=== PATIENT | female | born 1950 | race Caucasian/White ===

== ENCOUNTER → 2023-08-12 12:33 | Outpatient (REF) | payer OTHER, SELFPAY | LOC: RCS 12:33 | PROVIDERS: ATTENDING PHYSICIAN Internal Medicine Cardiovascular Disease; FAMILY PHYSICIAN Family Medicine | DX: I35.0 Nonrheumatic aortic (valve) stenosis (principal) | CPT/HCPCS: 93306 ==

== ENCOUNTER → 2023-09-03 14:23 | Outpatient (REF) | payer OTHER, SELFPAY | LOC: WDC 14:23 | PROVIDERS: ATTENDING PHYSICIAN Nurse Practitioner Family; FAMILY PHYSICIAN Family Medicine | DX: Z12.31 Encounter for screening mammogram for malignant neoplasm of breast (principal) | CPT/HCPCS: 77063; 77067 ==

== ENCOUNTER → 2023-12-24 08:35 | Outpatient (REF) | payer OTHER, SELFPAY | LOC: RAD 08:35 | PROVIDERS: ATTENDING PHYSICIAN Surgery Vascular Surgery; FAMILY PHYSICIAN Family Medicine | DX: I65.23 Occlusion and stenosis of bilateral carotid arteries (principal) | CPT/HCPCS: 93880 ==

== ENCOUNTER → 2024-02-11 08:58 | Outpatient (REF) | payer OTHER, SELFPAY | LOC: HWRCS 08:58 | PROVIDERS: ATTENDING PHYSICIAN Internal Medicine Cardiovascular Disease; FAMILY PHYSICIAN Family Medicine | DX: I35.0 Nonrheumatic aortic (valve) stenosis (principal) | CPT/HCPCS: 93306 ==

== ENCOUNTER 2024-04-01 06:15 | Day surgery (SDC) | payer MEDICARE, OTHER, SELFPAY ==
[2024-04-01 07:16] LABS: Glucose - Point of Care 185 mg/dl (70-99)
== END 2024-04-01 09:44 | disposition home or self-care (01) ==
LOC: GI 06:15
PROVIDERS: ATTENDING PHYSICIAN Surgery
DX: Z12.11 Encounter for screening for malignant neoplasm of colon (principal); K62.5 Hemorrhage of anus and rectum; K56.690 Other partial intestinal obstruction; D12.0 Benign neoplasm of cecum; D12.1 Benign neoplasm of appendix; C19 Malignant neoplasm of rectosigmoid junction
CPT/HCPCS: 45380; 45381; 88305; 82962; 88342

== ENCOUNTER → 2024-04-08 12:01 | Outpatient (REF) | payer MEDICARE, OTHER, SELFPAY ==
[2024-04-08 13:29] LABS: % Basophils 0.3 % (0-2); % Eosinophils 5.1 % (0-6); % Immature Granulocytes 0.5 % (0-0.5); % Lymphocytes 21.1 % (20.5-51.1); Absolute Eosinophils 0.4 10^3/uL (0-0.7); Absolute Lymphocytes 1.8 10^3/uL (1.2-3.4); Absolute Monocytes 0.5 10^3/uL (0.1-0.6); Absolute Neutrophils 5.8 10^3/uL (1.4-6.5); Hematocrit 36.8 % (37.0-47.0); Hemoglobin 12.1 g/dL (12.0-16.0); Mean Corp Hgb Conc. 32.9 g/dL (33.0-37.0); Mean Corpuscular Hgb 28.3 pg (27.0-31.0); Mean Platelet Volume 10.2 fL (7.4-10.4); Nucleated Red Blood Cells % 0 %; Platelet Count 290 10^3/uL (130-400); Red Blood Cell Count 4.28 10^6/uL (4.20-5.40); Red Cell Dist. Width 12.7 % (11.5-14.5); White Blood Cell Count 8.7 10^3/uL (4.8-10.8)
[2024-04-08 15:41] LABS: ALT (SGPT) 14 U/L (0-35); AST (SGOT) 19 U/L (14-36); Albumin 4.4 g/dl (3.5-5.0); Alkaline Phosphatase 54 U/L (38-126); Blood Urea Nitrogen 14 mg/dl (7-17); Calcium 9.1 mg/dl (8.4-10.2); Carbon Dioxide 27 mmol/L (22-30); Chloride 98 mmol/L (98-107); Glucose 165 mg/dl (70-99); Potassium 4.3 mmol/L (3.5-5.1); Sodium 137 mmol/L (135-145); Total Bilirubin 0.2 mg/dl (0.2-1.3); Total Protein 7.1 g/dl (6.3-8.2); eGFR > 60.00
== END ==
LOC: REG 12:01
PROVIDERS: ATTENDING PHYSICIAN Surgery; FAMILY PHYSICIAN Family Medicine
DX: C19 Malignant neoplasm of rectosigmoid junction (principal)
CPT/HCPCS: 36415; 80053; 82378; 85025

== ENCOUNTER → 2024-04-09 08:56 | Outpatient (REF) | payer MEDICARE, OTHER, SELFPAY | LOC: MRI 3T 08:56 | PROVIDERS: ATTENDING PHYSICIAN Surgery; FAMILY PHYSICIAN Family Medicine | DX: C19 Malignant neoplasm of rectosigmoid junction (principal) | CPT/HCPCS: 72197; A9575 ==

== ENCOUNTER → 2024-04-10 08:59 | Outpatient (REF) | payer MEDICARE, OTHER, SELFPAY | LOC: RAD 08:59 | PROVIDERS: ATTENDING PHYSICIAN Surgery | DX: C19 Malignant neoplasm of rectosigmoid junction (principal) | CPT/HCPCS: 71260; 74177; Q9967 ==

== ENCOUNTER 2024-05-01 06:09 | Inpatient (IN) | payer MEDICARE, OTHER, SELFPAY ==
[2024-04-23 10:55] LABS: Hematocrit 36.7 % (37.0-47.0); Hemoglobin 11.9 g/dL (12.0-16.0); Mean Corp Hgb Conc. 32.4 g/dL (33.0-37.0); Mean Corpuscular Hgb 28.2 pg (27.0-31.0); Platelet Count 249 10^3/uL (130-400); Red Blood Cell Count 4.22 10^6/uL (4.20-5.40); Red Cell Dist. Width 13.1 % (11.5-14.5); White Blood Cell Count 6.6 10^3/uL (4.8-10.8)
[2024-04-23 11:12] LABS: INR 0.96; PT 13.3 Sec (11.4-14.6)
[2024-04-23 11:13] LABS: APTT 29.2 Sec (23.4-35.0)
[2024-04-23 11:31] LABS: ALT (SGPT) 13 U/L (0-35); AST (SGOT) 20 U/L (14-36); Alkaline Phosphatase 52 U/L (38-126); Blood Urea Nitrogen 8 mg/dl (7-17); Calcium 9.4 mg/dl (8.4-10.2); Carbon Dioxide 27 mmol/L (22-30); Chloride 102 mmol/L (98-107); Glucose 105 mg/dl (70-99); Potassium 4.6 mmol/L (3.5-5.1); Sodium 138 mmol/L (135-145); Total Bilirubin 0.6 mg/dl (0.2-1.3); eGFR > 60.00
[2024-04-23 12:40] LABS: Glycohemoglobin (HgbA1c) 7.1 % (4.0-5.6)
[2024-04-23 14:04] VITALS: BMI 21.0
--- NOTE | 2024-04-24 17:38 | PTCARENOTE ---
HgbA1C 7.1, Tyler Chavez notified, no further orders at this time.
[2024-05-01] VITALS (30 sets, daily range): BP systolic 10–160; BP diastolic 49–134; BMI 21.0; BMI 22.5
[2024-05-01 06:53] LABS: Glucose - Point of Care 199 mg/dl (70-99)
[2024-05-01] MEDS: ENTEREG 12 MG PO (06:57)
[2024-05-01] MEDS: TYLENOL 1000 MG PO (06:57)
[2024-05-01] MEDS: NEURONTIN 600 MG PO (06:57)
[2024-05-01] MEDS: HEPARIN 5000 UNITS SC (06:57)
[2024-05-01] MEDS: NORMOSOL-R/PLASMALYTE-A 1000 IV ×3 (07:11→23:58)
--- NOTE | 2024-05-01 11:06 | W.OR.REC1 ---
Addendum entered and electronically signed by Tyron Covington MD 05/01/24 11:25:
Patient's , Cristhian, updated via phone conversation.
Original Note:
Rectal Surgery Post Op Note
Immediate Post Op
Primary Surgeon: Tito Covington MD
Assisting Surgeon: Audrey Cordoba MD; GHISLAINE Dahl
Urologist: Sonali Malone MD
Pre-op Diagnosis: rectal cancer
Post-op Diagnosis:same
Procedure Performed: 1) robotic low anterior resection 2) flexible sigmoidoscopy
Anesthesia Type: general plus local
Specimen / Cultures: 1) rectosigmoid with tattoo distally 2) distal anastomotic donut
Estimated Blood Loss: 25 cc
Complications: no immediate
Operative Findings: 1) upper rectal/rectosigmoid junction tumor with nearby tattooing 2) no obvious metastatic disease
Cancer Report
ASA Score: III
Case Status: Elective
Operation: Low anterior resection
Modailty: Robotic
Location of tumor within rectum: High
Height of lower edge of tumor from anal verge: 15-16 cm
Mobilization of splenic flexure: No
Level of ligation of inferior mesenteric artery: Superior rectal artery
Level of ligation of inferior mesenteric vein: Low
Level of rectal transectiondistal to distal edge of tumor: 4 cm
Type of Reconstruction: Stapled end-end
Anastomotic testing method(s): Rectal air infusion under pelvic fluid (with help of flexible sigmoidoscope)
Creation of stoma: No
En bloc resection: No
Metastectomy: No
Completeness of tumor resection: R0
Interoperative Complications: No
Blood transfusion: No
Total Mesorectal Excision photographed: in pathology
[2024-05-01 11:35] LABS: Glucose - Point of Care 275 mg/dl (70-99)
[2024-05-01 11:46] LABS: % Basophils 0.2 % (0-2); % Eosinophils 0.5 % (0-6); % Immature Granulocytes 0.3 % (0-0.5); % Lymphocytes 9.7 % (20.5-51.1); % Monocytes 1.6 % (1.7-9.3); % Neutrophils 87.7 % (42.2-75.2); Absolute Eosinophils 0.1 10^3/uL (0-0.7); Absolute Lymphocytes 1.2 10^3/uL (1.2-3.4); Absolute Monocytes 0.2 10^3/uL (0.1-0.6); Absolute Neutrophils 11.2 10^3/uL (1.4-6.5); Hemoglobin 11.4 g/dL (12.0-16.0); Mean Corp Hgb Conc. 33.5 g/dL (33.0-37.0); Mean Corpuscular Volume 83.5 fL (81.0-99.0); Mean Platelet Volume 10.1 fL (7.4-10.4); Nucleated Red Blood Cells % 0 %; Platelet Count 284 10^3/uL (130-400); Red Blood Cell Count 4.07 10^6/uL (4.20-5.40); White Blood Cell Count 12.8 10^3/uL (4.8-10.8)
[2024-05-01] MEDS: NOVOLOG vial 4 UNITS SC (12:04)
--- NOTE | 2024-05-01 12:06 | CON.HOSP ---
Consultation
-
Date/Time Consultation Requested: 05/01/24; 11:21 AM
Date/Time Consultation Performed: 05/01/24; 12:07 PM
Requesting Provider: Dr. Covington
Performing Provider: Dr. Wood
Family Physician
-
Family Physician: Bradley Flores
Chief Complaint
-
rectal cancer status post robotic low anterior colonic resection
History of Present Illness
Ms. Theresa Allison is a 73 yo woman with hx DM 2, essential HTN, HLD, hypothyroidism, severe , rectal cancer now status post robotic low anterior resection today; medicine asked to consult for medical care post-op.
Medical History
Past Medical History
Past Medical History: Reports Other (DM 2, essential HTN, HLD, hypothyroidism, severe , rectal cancer)
Past Surgical History: Reports Other ( status post robotic low anterior resection)
Family History
Family History: Reviewed & Not Pertinent
Allergies / Home Medications
Allergies reflects when Allergies were last updated in [employer].
Home Medications with original date entered in [employer]
Allergy/Medication List:
Allergies
Allergy/AdvReac Type Severity Reaction Status Date / Time
aspirin Allergy hives, Verified 05/01/24 06:24
itching
Home Medications
repaglinide 1 mg tablet 1 mg PO MEALS Diabetes 08/04/19
rosuvastatin 10 mg tablet 10 mg PO MOTUWETHFR@1800 High cholesterol 02/28/21
folic acid 1 mg tablet 1 mg PO DAILY 08/23/22
levothyroxine 75 mcg tablet 88 mcg PO DAILY 08/23/22
sitagliptin phos 50 mg-metformin ER 1,000 mg tablet,extend rel 24h mp (Janumet XR) 1 tab PO BID 08/23/22
bisacodyl 5 mg tablet,delayed release (Dulcolax (bisacodyl)) 10 mg PO ONCE 04/23/24
cholecalciferol (vitamin D3) 50 mcg (2,000 unit) tablet (Vitamin D3) 50 mcg PO DAILY 04/23/24
cyanocobalamin (vitamin B-12) 1,000 mcg tablet (Vitamin B-12) 1,000 mcg PO DAILY 04/23/24
losartan 50 mg tablet 50 mg PO DAILY 04/23/24
metronidazole 500 mg tablet 500 mg PO ONCE 04/23/24
neomycin 500 mg tablet 500 mg PO ONCE 04/23/24
peg 3350-electrolytes 236 gram-22.74 gram-6.74 gram-5.86 gram solution (Golytely) 240 ml PO Q10M preop 04/23/24
Review of Systems
-
History Source: Patient
A 12 point Review of Systems was completed except as noted: Yes
Physical Exam
Vital Signs
Vital Signs
Temp Pulse Resp BP Pulse Ox
97.2 F 83 20 140/63 100
05/01/24 11:32 05/01/24 11:45 05/01/24 11:45 05/01/24 11:45 05/01/24 11:45
Laboratory Results
-
Laboratory Results
05/01/24 11:37
PT 13.3 Sec (11.4-14.6) 04/23/24 08:33
INR 0.96 04/23/24 08:33
APTT 29.2 Sec (23.4-35.0) 04/23/24 08:33
Total Bilirubin 0.6 mg/dl (0.2-1.3) 04/23/24 08:33
AST 20 U/L (14-36) 04/23/24 08:33
ALT 13 U/L (0-35) 04/23/24 08:33
Alkaline Phosphatase 52 U/L (38-126) 04/23/24 08:33
Data Reviewed
-
Diagnostic Radiology: Report Reviewed by Me
Lab Data: Labs Reviewed
Impression / Plan
-
Ms. Theresa Calumet is a 73 yo woman with hx DM 2, essential HTN, HLD, hypothyroidism, severe , rectal cancer now status post robotic low anterior resection today; medicine asked to consult for medical care post-op.
LABS: WBC 12.8, Hg 11.4, PLT 284
Na 135, K+ 4.2, CO2 19, BUN 6, Cr 0.5, Glucose 266
Rectal Cancer s/p Robotic low anterior Resection 05/01
-s/p surgery by Dr. Covington today
-monitor in ICU overnight given critical
-CLD ordered
-continue Entereg
-pain control
-IVF
Severe
TTE 02/11/24 - EF 65-70%, peak and mean gradients aortic valve 86 and 54mmHg respectively. peak velocity 4.4m/s
-monitor in ICU overnight
-Cardiology aware of admission, consulted
Essential HTN
-DUST COLLECTOR Losartan
Hypothyroidism
-DUST COLLECTOR Synthroid
DM
-patient is on Janumet XR and Repaglinide at home
-ISS low
DVT PPx
FULL CODE
[2024-05-01 12:08] LABS: Blood Urea Nitrogen 6 mg/dl (7-17); Calcium 7.8 mg/dl (8.4-10.2); Carbon Dioxide 19 mmol/L (22-30); Chloride 102 mmol/L (98-107); Estimated Creatinine Clearance 85 ml/min; Glucose 266 mg/dl (70-99); Magnesium 1.8 mg/dl (1.6-2.3); Potassium 4.2 mmol/L (3.5-5.1); Sodium 135 mmol/L (135-145); eGFR > 60.00
[2024-05-01] MEDS: TRANDATE 5 MG IV (12:20)
[2024-05-01] MEDS: TORADOL 10 MG IV ×2 (13:18→20:05)
[2024-05-01] MEDS: TYLENOL 650 MG PO ×3 (13:19→20:08)
[2024-05-01] MEDS: REFRESH EYE DROPS (PF) 1 DROPS OPHTH (13:33)
--- NOTE | 2024-05-01 13:50 | CON.INTV ---
Consultation
Consultation Request
Date/Time Consultation Requested: 05/01/24
Date/Time Consultation Performed: 05/01/24
Performing Provider: Amalia
Reason for Consultation: ICU
Medical History
-
History of Present Illness:
Patient is a 73 year old F with history of rectal cancer (stage I), severe , DM 2, prior L CEA presenting for elective resection of cancer. Underwent LAR and flex sig by CRC on 05/01/24 and tolerated procedure well. He was extubated in PACU and
admitted to ICU for observation due to her history of severe . Currently not on pressors, stable on RA. Has eye pain from surgical tape but otherwise doing well.
Past Medical History
Past Medical History: Other (see list below)
Social History
Tobacco: Non-smoker
Alcohol: None
Drug: None
Family History
Family History: Reviewed & Not Pertinent
Allergies / Home Medications
Allergies
Allergy/AdvReac Type Severity Reaction Status Date / Time
aspirin Allergy hives, Verified 05/01/24 06:24
itching
Home Medications
�Medication �Instructions �Recorded �Confirmed �Last Taken �Type
repaglinide 1 mg tablet 1 mg PO MEALS Diabetes 08/04/19 05/01/24 04/29/24 History
rosuvastatin 10 mg tablet 10 mg PO MOTUWETHFR@1800 High 02/28/21 04/23/24 03/07/21 17:00 History
cholesterol
folic acid 1 mg tablet 1 mg PO DAILY 08/23/22 04/23/24 04/24/24 History
levothyroxine 75 mcg tablet 88 mcg PO DAILY 08/23/22 05/01/24 04/30/24 07:00 History
sitagliptin phos 50 mg-metformin 1 tab PO BID 08/23/22 05/01/24 04/29/24 17:00 History
ER 1,000 mg tablet,extend rel 24h
mp (Janumet XR)
bisacodyl 5 mg tablet,delayed 10 mg PO ONCE 04/23/24 05/01/24 04/30/24 13:00 History
release (Dulcolax (bisacodyl))
cholecalciferol (vitamin D3) 50 50 mcg PO DAILY 04/23/24 04/23/24 04/24/24 History
mcg (2,000 unit) tablet (Vitamin
D3)
cyanocobalamin (vitamin B-12) 1,000 mcg PO DAILY 04/23/24 04/23/24 04/24/24 History
1,000 mcg tablet (Vitamin B-12)
losartan 50 mg tablet 50 mg PO DAILY 04/23/24 05/01/24 04/30/24 07:00 History
metronidazole 500 mg tablet 500 mg PO ONCE 04/23/24 05/01/24 04/30/24 22:00 History
neomycin 500 mg tablet 500 mg PO ONCE 04/23/24 05/01/24 04/30/24 22:00 History
peg 3350-electrolytes 236 240 ml PO Q10M preop 04/23/24 05/01/24 05/01/24 04:00 History
gram-22.74 gram-6.74 gram-5.86
gram solution (Golytely)
Review of Systems
-
History Source: Patient
All other systems: Negative unless noted
Vitals / Labs / Diagnostic Testing
Vital Signs
Temp Pulse Resp BP Pulse Ox
97.8 F 78 12 144/62 99
05/01/24 13:49 05/01/24 13:00 05/01/24 13:00 05/01/24 12:45 05/01/24 13:49
Lab Data
05/01/24 11:37
05/01/24 11:37
Diagnostic Testing:
Physical Exam
-
HEENT: Normocephalic, Anicteric and Moist Mucous Membranes
Cardiovascular: S1/S2 and Regular Rhythm
Respiratory: Clear and Non-Labored Respirations
GI: Soft, Non Distended and Non Tender
Neurology: Awake, Alert, Oriented and No Motor Deficits
Skin: Warm, Dry and Good Color
General: Comfortable and Other (NAD)
Assessment
-
Patient is a 73 year old F with history of rectal cancer (stage I), severe , DM 2, prior L CEA presenting for elective resection of cancer. Underwent LAR and flex sig by CRC on 05/01/24 and tolerated procedure well. He was extubated in PACU and
admitted to ICU for observation due to her history of severe . Currently not on pressors, stable on RA. Has eye pain from surgical tape but otherwise doing well.
Rectal cancer s/p robotic low anterior resection, flexible sigmoidoscopy 05/01/24
BL Eye pain, red/watery
Mild leukocytosis
Hyperglycemia
Conditions RECEIVING TELLER:
Severe
HTN
Bilateral PIOTR: s/p L 12-29
T2DM
Hypothyroidism
Hypercholesterolemia
Hyperparathyroidism
Congenital stenosis AV
Appendectomy
Former smoker, remote h/o, 1/2 ppd for 10 y, quit with first in early 30s
Reported 'violent' reaction to ASA
Plan
Patient is s/p LAR/flex sig by colorectal surgery service, POD #0
Continue observation following procedure
Follow BP monitoring and parameters as set by primary team
Currently stable not on pressors
Cardiac history noted--HTN, severe
Resume on home meds
Monitor on telemetry
Pain control per protocol
RASS goal 0
No prior history of pulmonary disease, remote history of smoking, quit >40 years ago
Prior CXR reviewed indicating no acute disease
Recent CT reviewed, no evidence for met dz
No prior PFTs for review
Encouraged IS
s/p LAR, CRS following
Diet advancement per protocol/surgery team
Aspiration precautions
GI prophylaxis if indicated for stress ulcer prevention in the critically ill
Creat at baseline, follow UO
Critical I/Os
Void trials
Replete electrolytes as needed
No signs/symptoms suspicious for infectious etiology at this time
WBC likely postop
Will observe off antibiotics for now
Follow temperatures/CBC
Hb and platelets postoperatively stable
DVT prophylaxis recommended if not contraindicated based on procedural history -- heparin SQ and mechanical SCDs
Encouraged OOB/PT/OT/ambulation once cleared by surgical team
We will follow
Can likely transfer out of ICU in AM post observation
Diagnostic Data
Chest X-Ray 03-06-21: PA/lat, no infiltrates
CT chest: 04/10/24- No CT evidence for metastatic disease. Mass at the rectosigmoid junction in keeping with the patient's known rectal cancer.
Echo: 02/11/24. Left ventricle: Normal size and function with a visually estimated ejection fraction of 65 to 70%. Mild concentric LVH. No regional wall motion abnormalities
2. Right ventricle: Normal
3. Atria: Normal
4. Mitral valve: Trace mitral regurgitation
5. Aortic valve: Thickened calcified aortic leaflets with severe aortic stenosis. The peak and mean gradients are 86 and 54 mmHg respectively. The aortic valve peak velocity measures 4.4 m/s. The dimensionless index is 0.2.
There is moderate aortic insufficiency
6. Tricuspid valve: Mild tricuspid regurgitation with estimated pulmonary artery systolic pressures of 26 mmHg
7. When compared to the most recent echocardiogram from 08/12/2023, the mean aortic valve gradient has increased from 39 to 54 mmHg and moderate aortic insufficiency is now noted.
01-24-21, LVEF 54%, NWMAs, mild LVH. Normal diastolic fx. Mild MR. Moderate . Trace AR. RV with normal size and fx.
PFT's: N/A
Reports and relevant images were personally reviewed.
Critical Care time 50 mins -- this includes review of history, physical exam, medications, hemodynamic/O2 parameters, laboratory data, imaging and discussions with care team, pharmacy, nursing and patient.
--- NOTE | 2024-05-01 13:54 | PTCARENOTE ---
pt received from pacu- aox4, drowsy, able to make all needs known. on 2LNC. complaining of eye discomfort, eye drops given as per order. right radial silvana zeroed and functioning. Dr Wood aware of cuff and arterial pressures being elevated, no new
orders at this time. abdomen with 4 surigical sites with dermabond jose ramon- c/d/i. right mid abdomen ramiro dressing c/d/i, serosang drainage. leavitt with stent in places, blood tinged urine. pt able to turn and reposition self. scds on. and daughter
at bedside with pt, pt educated about plan of care, verbalized understanding. all safety precautions in place. call thompson within reach. ivf infusing as per order.
--- NOTE | 2024-05-01 14:00 | PTCARENOTE ---
pt received from pacu- aox4, drowsy, able to make all needs known. on 2LNC. complaining of eye discomfort, eye drops given as per order. left radial silvana zeroed and functioning. Dr Wood aware of cuff and arterial pressures being elevated, no new
orders at this time. abdomen with 4 surgical sites with dermabond flotation tender- c/d/i. right mid abdomen ramiro dressing c/d/i, serosang drainage. leavitt with stent in places, blood tinged urine. pt able to turn and reposition self. scds on. and daughter
at bedside with pt, pt educated about plan of care, verbalized understanding. all safety precautions in place. call thompson within reach. ivf infusing as per order.
--- NOTE | 2024-05-01 14:08 | W.PN.CARDCBS ---
Addendum entered and electronically signed by Zach Portillo DO 05/01/24 18:35:
I saw and examined the patient.
The Pallet Sorter's note was reviewed and I agree with the note.
Comment:
Patient resting comfortably without complaint. Patient is status post robotic low anterior colonic resection.
GENERAL: no acute distress
NECK: Supple, no JVD, no carotid bruit appreciated
ENT: normal nose, moist mucosal membranes
CARDIAC: Regular rate and rhythm, +S1/ diminished S2, 3/6 NATHANIEL; no rubs, or gallops
CHEST/PULMONARY: Normal effort, clear breath sounds
ABDOMEN: Soft, without focal tenderness or distention
NEUROLOGICAL: Alert and oriented x3
SKIN: Warm and dry, no rash
PSYCH: Normal and appropriate interaction.
Telemetry sinus rhythm
EKG sinus rhythm nonspecific ST abnormality, prolonged QT
Please refer to note dated 04/06/24
Primary Office Executive: Dr. Chavez
Assessment:
Rectal cancer s/p robotic low anterior resection 05/01/24
Severe
HTN
HLD
DM
Hypothyroidism
Hyperparathyroidism
Carotid artery disease s/p L CEA 02/2021
History of possible angioedema with aspirin approximately 30 years ago
Former smoker
ECHO 02/11/2024: EF 65 to 70%, mild concentric LVH, no regional wall motion abnormalities, trace MR, severe with peak/mean gradients 86/54 mmHg, moderate AI, moderate TR with PAP 26 mmHg
Plan:
-s/p robotic low anterior resection for rectal cancer 05/01/24
-no CP, SOB
-in ICU overnight for monitoring
-BPs elevated up to 170s systolic by silvana. will give half of OP losartan dose now (25mg). avoiding hypotension in setting of severe
-continue post op care
-for SAVR/TAVR evaluation once recovers
-d/w nursing, d/w Dr Sims, d/w family at bedside
Original Note:
Today's Communication / Plan
-
continue post op care
follow BPs. 1/2 dose of OP cozaar now due to hypertension
post op EKG
Impression / Plan
-
Please refer to note dated 04/06/24
Primary Office Executive: Dr. Chavez
Assessment:
Rectal cancer s/p robotic low anterior resection 05/01/24
Severe
HTN
HLD
DM
Hypothyroidism
Hyperparathyroidism
Carotid artery disease s/p L CEA 02/2021
History of possible angioedema with aspirin approximately 30 years ago
Former smoker
ECHO 02/11/2024: EF 65 to 70%, mild concentric LVH, no regional wall motion abnormalities, trace MR, severe with peak/mean gradients 86/54 mmHg, moderate AI, moderate TR with PAP 26 mmHg
Plan:
-s/p robotic low anterior resection for rectal cancer 05/01/24
-no CP, SOB
-in ICU overnight for monitoring
-BPs elevated up to 170s systolic by silvana. will give half of OP losartan dose now (25mg). avoiding hypotension in setting of severe
-check post op EKG. in SR on tele
-continue post op care
-for SAVR/TAVR evaluation once recovers
-d/w nursing. d/w family at bedside
Progress Note - Office Executive
Subjective
Date of Service: May 01, 2024
reports complaints of eye irritation
Objective
Labs:
05/01/24 11:37
05/01/24 11:37
Labs
Hgb 11.4 g/dL (12.0-16.0) L 05/01/24 11:37
Hct 34.0 % (37.0-47.0) L 05/01/24 11:37
Plt Count 284 10^3/uL (130-400) 05/01/24 11:37
PT 13.3 Sec (11.4-14.6) 04/23/24 08:33
INR 0.96 04/23/24 08:33
APTT 29.2 Sec (23.4-35.0) 04/23/24 08:33
Sodium 135 mmol/L (135-145) 05/01/24 11:37
Potassium 4.2 mmol/L (3.5-5.1) 05/01/24 11:37
BUN 6 mg/dl (7-17) L 05/01/24 11:37
Creatinine 0.5 mg/dL (0.6-1.0) L 05/01/24 11:37
Glucose 266 mg/dl (70-99) H 05/01/24 11:37
Vital Signs and I&O:
Vital Signs
Temp Pulse Resp BP Pulse Ox
97.8 F 78 12 14462 99
05/01/24 13:49 05/01/24 13:00 05/01/24 13:00 05/01/24 12:45 05/01/24 13:49
Vital Signs
Temp Pulse Resp BP Pulse Ox
97.8 F 78 12 14462 99
05/01/24 13:49 05/01/24 13:00 05/01/24 13:00 05/01/24 12:45 05/01/24 13:49
Intake & Output
04/29/24 04/30/24 05/01/24 05/02/24
07:59 07:59 07:59 07:59
Intake Total 75 / 75
Output Total 1010 / 1010
Balance -935 / -935
Physical Exam
Physical Exam
GEN: No distress, awake, alert, oriented x3
HEENT: supple, anicteric, mmm, eomi
LUNGS: CTA B/L, no wheezes/rales
CV: Reg, S1/S2, 2/6 syst LSB
EXT: No cyanosis, clubbing, edema
NEURO: Gross non-focal
SKIN: Warm, pink, dry. No rash
[2024-05-01] MEDS: COZAAR 25 MG PO (15:16)
--- NOTE | 2024-05-01 15:17 | PTCARENOTE ---
Dr. Holland and anesthesia aware of pt eye- no new orders. assessment unchanged. ekg completed
[2024-05-01] MEDS: CRESTOR 10 MG PO (17:07)
[2024-05-01] MEDS: NOVOLOG FLEXPEN-LOW RESISTANCE 1 UNITS SC (17:19)
[2024-05-01 17:29] LABS: Glucose - Point of Care 186 mg/dl (70-99)
--- NOTE | 2024-05-01 20:47 | PTCARENOTE ---
Pt is Aox3, forgetful at times. Denies pain, scheduled Tylenol and Toradol. OOB to bathroom, steady on feet with assist x1. Attempted BM unsuccessful at this time. NSR on monitor, Audible murmur, no edema, knee high compression socks on w/ SCDs.
Venus in place left wrist. Normosol infusing 80ml/hr. RA, lungs are clear. Belly soft and tender to palpation, 4 incisional sites closed with surgical glue. DELL drain upper right side, no drainage as of right now. Amaya in place, draining bloody
urine. pt turns self in bed. Will continue with plan of care.
[2024-05-01 22:33] LABS: Glucose - Point of Care 285 mg/dl (70-99)
--- NOTE | 2024-05-01 23:45 | PTCARENOTE ---
Pt c/o feeling the urge to urinate and full bladder. bladder scanned for 500ml, irrigated catheter and stent, urine continues to be bloody. Ayesha PAREDES reached out to Urology, stat Valium administered. Pts pressure was relieved with medication.
[2024-05-01] MEDS: NOVOLOG FLEXPEN 3 UNITS SC (23:55)
[2024-05-02] VITALS (14 sets, daily range): BP systolic 92–171; BP diastolic 44–114; BMI 22.6
[2024-05-02] MEDS: VALIUM INJECTION 2 MG IV (00:03)
[2024-05-02] MEDS: TYLENOL 650 MG PO ×5 (00:15→21:01)
[2024-05-02] MEDS: TORADOL 10 MG IV ×4 (02:44→21:01)
[2024-05-02] MEDS: VALIUM INJECTION 5 MG IV (02:46)
[2024-05-02] MEDS: TYLENOL PO (05:19)
[2024-05-02 05:38] LABS: % Basophils 0.2 % (0-2); % Eosinophils 0.2 % (0-6); % Immature Granulocytes 0.5 % (0-0.5); % Lymphocytes 10.5 % (20.5-51.1); % Monocytes 6.2 % (1.7-9.3); % Neutrophils 82.4 % (42.2-75.2); Absolute Immature Granulocytes 0.1 10^3/uL (0-0.05); Absolute Lymphocytes 1.2 10^3/uL (1.2-3.4); Absolute Monocytes 0.7 10^3/uL (0.1-0.6); Absolute Neutrophils 9.6 10^3/uL (1.4-6.5); Hematocrit 31.9 % (37.0-47.0); Hemoglobin 10.7 g/dL (12.0-16.0); Mean Corp Hgb Conc. 33.5 g/dL (33.0-37.0); Mean Corpuscular Hgb 28.2 pg (27.0-31.0); Mean Corpuscular Volume 84.2 fL (81.0-99.0); Mean Platelet Volume 10.3 fL (7.4-10.4); Nucleated Red Blood Cells % 0 %; Platelet Count 200 10^3/uL (130-400); Red Blood Cell Count 3.79 10^6/uL (4.20-5.40); Red Cell Dist. Width 13.1 % (11.5-14.5); White Blood Cell Count 11.7 10^3/uL (4.8-10.8)
[2024-05-02] MEDS: SYNTHROID 88 MCG PO (05:53)
[2024-05-02 05:55] LABS: Blood Urea Nitrogen 7 mg/dl (7-17); Carbon Dioxide 22 mmol/L (22-30); Chloride 98 mmol/L (98-107); Estimated Creatinine Clearance 81 ml/min; Glucose 206 mg/dl (70-99); Magnesium 1.9 mg/dl (1.6-2.3); Potassium 3.9 mmol/L (3.5-5.1); Sodium 129 mmol/L (135-145); eGFR > 60.00
--- NOTE | 2024-05-02 05:59 | W.PN.UPDATE ---
Update Note
Progress Note Update
05/02/24 at 0000
Patient concerned about urinary output, small amounts of blood urine. Stents and Amaya irrigated with sterile flushes, clots and sediment seen upon irrigation. Patient describes pressure and fullness and very concerned about urine. Patient
declined patient medication, declined dilaudid concerned that she did not want to be 'knocked out and wanted to feel pain'. Educated and discussed options for pain management, she was ok with valium IV for bladder spasms. Dr. Malone, urologist
updated, agreed with prn pain medication and valium prn.
[2024-05-02] MEDS: COZAAR 50 MG PO (07:22)
[2024-05-02] MEDS: PROTONIX 40 MG PO (07:22)
[2024-05-02] MEDS: ENTEREG 12 MG PO ×2 (07:23→21:01)
--- NOTE | 2024-05-02 07:23 | W.PN.UPDATE ---
Update Note
Progress Note Update
pt had cysto and stents placed yesterday prior to colo-rectal procedure
one stent removed at end of case
overnight pt c/o of sig bladder pressure/leak around leavitt/some hemturia
responded to valium
this am had large dump of urine with cath re-positioning- clear
cr normal
? if bladder spasms or mechanical obstruction of cath
i did remove the second stent and connected leavitt to regular drainage bad
urine is clear
may remove cath at any time per colo-rectal
call with any further questions
[2024-05-02 07:28] LABS: Glucose - Point of Care 200 mg/dl (70-99)
[2024-05-02] MEDS: NOVOLOG FLEXPEN-LOW RESISTANCE 2 UNITS SC (07:41)
--- NOTE | 2024-05-02 08:06 | PTCARENOTE ---
pt received from previous rn- aox4, on room air, nsr, no complaints of pain at this time. Dr. Malone at bedside and removed uretal stent, aware of leavitt not always draining properly, pt oob to chair with increased urine output, remains bloody. left
radial silvana zeroed and functioning. abdominal sites jose ramon, c/d/i. ramiro drain with serosang drainage. pt resting comfortably at this time, educated about plan of care, verbalized understanding. all safety precautions in place, call thompson within reach.
--- NOTE | 2024-05-02 08:14 | W.PN.INTV ---
Today's Communication / Plan
Recommendations
Pain control
Erythromycin ointment to left eye
Continue left-sided eye patch
Can stop IV fluids while advancing diet as tolerated
Okay to remove A-line blood will defer this to surgery
Up OOB as tolerated
Encourage incentive spirometer use
Maintain MAP > 65 with BP<140/90mmHg
Goal BG 140-180, using ISS to keep that goal
Patient currently in the ICU postoperatively. She is stable for downgrade out of ICU to telemetry. Will defer this decision to colorectal surgery. No additional recommendations at this time. Salon Assistant/Pulmonary service will now sign off.
Please reconsult if there are any additional questions/concerns, or if patient's respiratory status deteriorates.
Assessment
-
Patient is a 73 year old F with history of rectal cancer (stage I), severe , DM 2, prior L CEA presenting for elective resection of cancer. Underwent LAR and flex sig by CRC on 05/01/24 and tolerated procedure well. He was extubated in PACU and
admitted to ICU for observation due to her history of severe . Currently not on pressors, stable on RA. Has eye pain from surgical tape but otherwise doing well.
Rectal cancer s/p robotic low anterior resection, flexible sigmoidoscopy 05/01/24
L- sided eye pain, red/watery, likely irritation from tape during OR
Mild leukocytosis
Hyperglycemia (hbA1C: 7.1 on 04/23/2024)
Conditions TROMPER:
Severe
HTN
Bilateral PIOTR: s/p L 12-29
T2DM
Hypothyroidism
Hypercholesterolemia
Hyperparathyroidism
Congenital stenosis AV
Appendectomy
Former smoker, remote h/o, 1/2 ppd for 10 y, quit with first in early 30s
Reported 'violent' reaction to ASA
Plan
Patient is s/p LAR/flex sig by colorectal surgery service, POD #1
Continue observation and post-operative management as per colorectal surgery
Follow BP monitoring and parameters as set by primary team
Currently stable not on pressors
Cardiac history noted--HTN, severe
Resume on home meds
Monitor on telemetry
Pain control
Erythromycin 0.5% for left eye pain/redness
No prior history of pulmonary disease, remote history of smoking, quit >40 years ago
Prior CXR reviewed indicating no acute disease
CXR from today shows no acute cardiopulmonary disease
Recent CT reviewed, no evidence for met dz
No prior PFTs for review
Encouraged IS
s/p LAR, CRS following
Diet advancement per protocol/surgery team
Aspiration precautions
GI prophylaxis: N/A --> can stop PPI
Creat at baseline, follow UOP
Replete electrolytes as needed
No signs/symptoms suspicious for infectious etiology at this time
WBC likely postop
Will observe off antibiotics for now
Follow temperatures/CBC
Hb and platelets postoperatively stable
DVT prophylaxis recommended if not contraindicated based on procedural history -- please start LMWH
Encouraged OOB/PT/OT/ambulation once cleared by surgical team
Patient currently in the ICU postoperatively. She is stable for downgrade out of ICU to telemetry. Will defer this decision to colorectal surgery. No additional recommendations at this time. Salon Assistant/Pulmonary service will now sign off.
Thank you for allowing us to be involved in the care of this patient. Please reconsult if there are any additional questions/concerns, or if patient's respiratory status deteriorates.
Diagnostic Data
Chest X-Ray 03-06-21: PA/lat, no infiltrates
CT chest: 04/10/24- No CT evidence for metastatic disease. Mass at the rectosigmoid junction in keeping with the patient's known rectal cancer.
Echo: 02/11/24- . Left ventricle: Normal size and function with a visually estimated ejection fraction of 65 to 70%. Mild concentric LVH. No regional wall motion abnormalities
2. Right ventricle: Normal
3. Atria: Normal
4. Mitral valve: Trace mitral regurgitation
5. Aortic valve: Thickened calcified aortic leaflets with severe aortic stenosis. The peak and mean gradients are 86 and 54 mmHg respectively. The aortic valve peak velocity measures 4.4 m/s. The dimensionless index is 0.2.
There is moderate aortic insufficiency
6. Tricuspid valve: Mild tricuspid regurgitation with estimated pulmonary artery systolic pressures of 26 mmHg
7. When compared to the most recent echocardiogram from 08/12/2023, the mean aortic valve gradient has increased from 39 to 54 mmHg and moderate aortic insufficiency is now noted.
01-24-21, LVEF 54%, NWMAs, mild LVH. Normal diastolic fx. Mild MR. Moderate . Trace AR. RV with normal size and fx.
PFT's: N/A
Reports and relevant images were personally reviewed.
Total time spent today was 57 minutes for this encounter. Time includes reviewing laboratory test/imaging results, reviewing pertinent medical records, obtaining and reviewing medical history, performing an appropriate exam, ordering medications,
tests and procedures. Time also includes documentation of this encounter, coordinating patient care and communicating with other healthcare professionals. Total time does not include separately billed tests performed on this date of service.
Subjective Dataa
Subjective Data
Date of Service:
Date of Service: May 02, 2024
Chief Complaint: Salon Assistant Follow Up
Subjective:
Patient seen and evaluated today at bedside. Has left eye pain and wearing an eye patch which is helping. Patient's daughter, Tong, at bedside and all questions were answered. Patient on normosol IVF at 80 cc/hr. She is tolerating her clear
liquid diet. Currently on room air breathing comfortably, saturating 100%. Heart rate 89 BP via A-line: 188/64. She denies chest pain, WONG, nausea, vomiting, fevers or chills.
Review of Systems
General: Other (Negative unless mentioned above)
Objective Data
Data Reviewed
Vital Signs / I&O / Oxygen:
Vital Signs
Temp Pulse Resp BP Pulse Ox
98.6 F 90 17 126/93 98
05/02/24 07:00 05/02/24 09:00 05/02/24 09:00 05/02/24 08:00 05/02/24 09:00
Intake and Output
05/01/24 05/02/24 05/03/24
06:59 06:59 06:59
Intake Total 1435 / 1515 240 / 240
Output Total 3035 / 3035 200 / 200
Balance -1600 / -1520 40 / 40
SaO2 98
Nasal Cannula flow liters per 97
minute
Physical Exam
General: Respiratory Distress (negative), Comfortable, Chills (negative) and Sweats (negative)
HEENT: Normocephalic, Anicteric and Other (Eyepatch covering left eye)
Cardiovascular: S1-S2, Murmur (Loud NATHANIEL, RUSB loudest) and Peripheral Edema (negative)
Respiratory: Clear, Wheeze (negative), Crackles (negative), Rhonchi (negative) and Non-Labored Respirations
GI: Soft, Non Distended, Non Tender and Normal Bowel Sounds
Neurology: AO x 3 and Tremors (negative)
Skin: Warm, Dry, Cyanosis (negative) and Jaundice (negative)
Labs/Micro/Reports
Lab Data
05/02/24 05:18
05/02/24 05:17
Laboratory Results
05/02/24
08:42
PT 15.3 H
INR 1.18
APTT 35.4 H
--- NOTE | 2024-05-02 08:20 | W.PN.HOSP.TC ---
Today's Communication/Plan
-
appreciate consultants
reached out to Ophthalmology for corneal abrasion recs
Assessment / Plan
Assessment / Plan
Ms. Theresa Allison is a 73 yo woman with hx DM 2, essential HTN, HLD, hypothyroidism, severe , rectal cancer now status post robotic low anterior resection 05/02 with cysto and stents placed prior to procedure; medicine asked to consult for medical
care post-op.
Rectal Cancer s/p Robotic low anterior Resection 05/01
-s/p surgery by Dr. Covington today
-monitor in ICU overnight given critical
-CLD ordered
-continue Entereg
-pain control
-IVF
s/p cysto and bilateral ureteral stent insertion
-spasms overnight, evaluated by Urology this AM - with repositioning significant urine output, not bloody
Left Eye irritation, concern for corneal abrasion
-likely start Erythromycin ointment, confirming plan with opthalmology
Hyponatremia
-check urine studies
Severe
TTE 02/11/24 - EF 65-70%, peak and mean gradients aortic valve 86 and 54mmHg respectively. peak velocity 4.4m/s
-monitor in ICU overnight
-Cardiology aware of admission, consulted
Essential HTN
-GAS STOVE SERVICER HELPER Losartan
Hypothyroidism
-GAS STOVE SERVICER HELPER Synthroid
DM
-patient is on Janumet XR and Repaglinide at home
-A1c = 7.1%
-ISS low
-start low dose Lantus here
DVT PPx
FULL CODE
Anticipated Discharge: 24 - 48 hours
Subjective/Interval History
-
Date of Service: May 02, 2024
left eye pain worse with opening; she is wearing a patch on it
no chest pain or shortness of breath
Objective Data
-
Labs:
Laboratory Results
05/02/24 05/02/24 05/02/24
05:17 05:18 07:57
WBC 11.7 H
Hgb 10.7 L
Hct 31.9 L
Plt Count 200 D
PT Pending
INR Pending
APTT Pending
Sodium 129 L
Potassium 3.9
Chloride 98
Carbon Dioxide 22
BUN 7
Creatinine 0.6
Glucose 206 H
Calcium 8.0 L
Vital Signs:
Vital Signs
Temp Pulse Resp BP Pulse Ox
98.6 F 83 19 111/72 99
05/02/24 07:00 05/02/24 07:00 05/02/24 07:00 05/02/24 07:00 05/02/24 08:01
I&O
05/01/24 05/02/24 05/03/24
06:59 06:59 06:59
Intake Total 1435 / 1515 80 / 80
Output Total 3035 / 3035
Balance -1600 / -1520 80 / 80
Review of Systems
-
History Source: Patient
All other systems: Reviewed and negative
Physical Exam
-
General: No Apparent Distress
HEENT: Moist Mucous Membranes and Other (wearing patch left eye; left eye sclera mildly erythematous, EOMI, no eyelid swelling )
Respiratory: Clear to Auscultation
Cardiac: Regular Rhythm and S1/S2
Skin: Warm and Dry; Negative Rash
Neuro: AO x 3 and Other
Psych: Calm
Data Reviewed
-
Diagnostic Radiology: Report Reviewed by me
Labs: Labs Reviewed by me
[2024-05-02] MEDS: LANTUS 0.06 UNITS SC (08:45)
[2024-05-02 08:59] LABS: Osmolality Urine 160 mOsm/kg (300-900)
[2024-05-02 09:00] LABS: INR 1.18; PT 15.3 Sec (11.4-14.6)
[2024-05-02 09:01] LABS: APTT 35.4 Sec (23.4-35.0)
[2024-05-02 09:23] LABS: Urine Sodium 40 mmol/L (30-90)
[2024-05-02] MEDS: ERYTHROMYCIN 0.5% OPHTHALMIC OINTMENT 1 APPLIC OPHTH ×4 (10:06→21:07)
--- NOTE | 2024-05-02 10:25 | W.PN.CARDCBS ---
Today's Communication / Plan
-
Continue losartan 50 mg daily and monitor blood pressure
Treat underlying causes for increased blood pressure in the setting of recent surgery; would avoid hypotension in the setting of severe aortic stenosis
Follow-up as outpatient for intervention/evaluation on aortic stenosis
Impression / Plan
-
Please refer to note dated 04/06/24
Primary Tree Inspector: Dr. Chavez
Assessment:
Rectal cancer s/p robotic low anterior resection 05/01/24
Severe
HTN
HLD
DM
Hypothyroidism
Hyperparathyroidism
Carotid artery disease s/p L CEA 02/2021
History of possible angioedema with aspirin approximately 30 years ago
Former smoker
ECHO 02/11/2024: EF 65 to 70%, mild concentric LVH, no regional wall motion abnormalities, trace MR, severe with peak/mean gradients 86/54 mmHg, moderate AI, moderate TR with PAP 26 mmHg
EKG 05/01/2024 sinus rhythm nonspecific T wave abnormality, prolonged QT, no significant change from prior
Plan:
-s/p robotic low anterior resection for rectal cancer 05/01/24
-no CP, SOB
-in ICU overnight for monitoring
-Stable BP, mildly hypertensive with systolic on noninvasive 130-140 mmHg; resume losartan 50 mg daily (outpatient home medicine) and monitor. Suspect mildly increased blood pressures while inpatient as a function of discomfort/recent surgery
however would not be in a briones to treat as we want to avoid hypotension in the setting of severe aortic stenosis
-continue post op care
-for SAVR/TAVR evaluation once recovers as outpatient, patient has establish follow-up
� No further recommendations from cardiovascular standpoint. Will sign off. Please call with questions. Thank you.
-d/w nursing
Progress Note - Tree Inspector
Subjective
Date of Service: May 02, 2024
Patient seen and examined's morning. No acute events overnight. Patient resting comfortably in chair. Patient denies any chest pain, shortness of breath, palpitations, lightheadedness, dizziness, near-syncope, syncope, or weakness. Patient still
notes mild eye discomfort from abrasion. Telemetry demonstrates sinus rhythm. Roughly 1.6 L output. Afebrile overnight.
Objective
Labs:
05/02/24 05:18
05/02/24 05:17
Labs
Hgb 10.7 g/dL (12.0-16.0) L 05/02/24 05:18
Hct 31.9 % (37.0-47.0) L 05/02/24 05:18
Plt Count 200 10^3/uL (130-400) D 05/02/24 05:18
PT 15.3 Sec (11.4-14.6) H 05/02/24 08:42
INR 1.18 05/02/24 08:42
APTT 35.4 Sec (23.4-35.0) H 05/02/24 08:42
Sodium 129 mmol/L (135-145) L 05/02/24 05:17
Potassium 3.9 mmol/L (3.5-5.1) 05/02/24 05:17
BUN 7 mg/dl (7-17) 05/02/24 05:17
Creatinine 0.6 mg/dL (0.6-1.0) 05/02/24 05:17
Glucose 206 mg/dl (70-99) H 05/02/24 05:17
Vital Signs and I&O:
Vital Signs
Temp Pulse Resp BP Pulse Ox
98.6 F 90 17 126/93 98
05/02/24 07:00 05/02/24 09:00 05/02/24 09:00 05/02/24 08:00 05/02/24 09:00
Vital Signs
Temp Pulse Resp BP Pulse Ox
98.6 F 90 17 126/93 98
05/02/24 07:00 05/02/24 09:00 05/02/24 09:00 05/02/24 08:00 05/02/24 09:00
Intake & Output
04/30/24 05/01/24 05/02/24 05/03/24
06:59 06:59 06:59 06:59
Intake Total 1435 / 1515 320 / 320
Output Total 3035 / 3035 200 / 200
Balance -1600 / -1520 120 / 120
Physical Exam
Physical Exam
GEN: No distress, awake, alert, oriented x3
HEENT: supple, anicteric, mmm, eomi
LUNGS: CTA B/L, no wheezes/rales
CV: Reg, S1/diminished S2, 3/6 syst LSB
EXT: No cyanosis, clubbing, edema
NEURO: Gross non-focal
SKIN: Warm, pink, dry. No rash
--- NOTE | 2024-05-02 10:46 | PTCARENOTE ---
Dr. Portillo aware of pts bp, no further orders at this time.
--- NOTE | 2024-05-02 11:25 | CM ---
CM following re: discharge planning.
Reviewed pt's chart, met with pt. Pt's and daughter at bedside.
Pt is a 73 year old female, admitted with primary dx of Rectal Cancer s/p Robotic low anterior Resection 05/01
Pt reports she lives with 2SH, 2 steps to enter, has 2 supportive children. 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
PCP: Bradley Flores
Pharmacy: [facility]
D/C plan: home with anticipated no needs. to transport at discharge.
CM will follow with discharge plan updates as needed.
[2024-05-02 12:10] LABS: Glucose - Point of Care 252 mg/dl (70-99)
--- NOTE | 2024-05-02 12:24 | W.PN.CRS1 ---
Today's Communication / Plan
-
Leavitt out.
Lovenox.
Fulls.
Tele.
Assessment/Plan
-
POD 1.
1. tolerating clears with bowel function. Go to fulls.
2. labs and vitals ok.
3. OOB.
4. start Lovenox.
5. d/c leavitt.
6. appreciate hospitalist/cardiology help. Ok to transfer to tele.
Subjective Data
Procedure
1) robotic low anterior resection 2) flexible sigmoidoscopy on 05/01/24
Subjective Data
Date of Service: May 02, 2024
Sitting up.
Good pain control.
Tolerating clears.
Had flatus and Bm.
Objective Data
-
Vital Signs
Temp Pulse Resp BP Pulse Ox
98.6 F 84 23 169/76 100
05/02/24 07:00 05/02/24 11:10 05/02/24 10:12 05/02/24 11:14 05/02/24 11:10
Intake & Output
05/01/24 05/02/24 05/03/24
06:59 06:59 06:59
Intake Total 1435 / 1515 400 / 400
Output Total 3035 / 3035 1000 / 1000
Balance -1600 / -1520 -600 / -600
Intake:
IV fluids (Total) 1435 / 1515 400 / 400
normosol 1435 / 1515 400 / 400
Output:
Liquid stool amount 150 / 150
Rectum 150 / 150
Drain Output (Total) 75 / 75
Right Middle Abdomen Alvin- 75 / 75
Rocha A
Urine, Leavitt 2810 / 2810 1000 / 1000
Lab Results
05/02/24 05:18
05/02/24 05:17
Physical Exam
-
General: No Acute Distress
Chest: Clear
Cardiovascular: Regular Rate & Rhythm
Abdomen: Non Distended and Tender (mild incisional)
Skin: Good Color
Incision: Clear, Dry, Intact and No Skin Erythema
[2024-05-02] MEDS: NOVOLOG FLEXPEN-LOW RESISTANCE 3 UNITS SC (12:26)
[2024-05-02] MEDS: NORMOSOL-R/PLASMALYTE-A IV (12:26)
--- NOTE | 2024-05-02 12:34 | PTCARENOTE ---
Dr. Covington and Chuyita Salas PA at bedside, ordered to remove arterial line, d/c dagmar, pt ok for downgrade to tele. leavitt removed, pressure held for silvana removal, pressure dressing applied and intact. ivf d/c per Chuyita salas. pt and daughter
aware of full liquid diet. pt remains oob to chair and ambulating to bathroom with supervision
[2024-05-02] MEDS: LOVENOX 40 MG SC (17:31)
[2024-05-02] MEDS: LANTUS 0.05 UNITS SC (17:31)
[2024-05-02] MEDS: NOVOLOG FLEXPEN-MODERATE RESISTANCE 5 UNITS SC (17:32)
[2024-05-02 17:39] LABS: Glucose - Point of Care 256 mg/dl (70-99)
[2024-05-02 21:40] LABS: Glucose - Point of Care 81 mg/dl (70-99)
[2024-05-03] MEDS: TYLENOL PO (03:55)
[2024-05-03] MEDS: TORADOL IV (03:56)
[2024-05-03 04:06] VITALS: BP 168/92
[2024-05-03] MEDS: TYLENOL 650 MG PO ×3 (04:11→11:53)
[2024-05-03 04:47] LABS: Hematocrit 31.6 % (37.0-47.0); Hemoglobin 10.6 g/dL (12.0-16.0); Mean Corp Hgb Conc. 33.5 g/dL (33.0-37.0); Mean Corpuscular Hgb 28.3 pg (27.0-31.0); Mean Corpuscular Volume 84.3 fL (81.0-99.0); Mean Platelet Volume 10.5 fL (7.4-10.4); Platelet Count 207 10^3/uL (130-400); Red Blood Cell Count 3.75 10^6/uL (4.20-5.40); Red Cell Dist. Width 13.1 % (11.5-14.5); White Blood Cell Count 8.2 10^3/uL (4.8-10.8)
[2024-05-03 05:04] LABS: Blood Urea Nitrogen 6 mg/dl (7-17); Calcium 8.6 mg/dl (8.4-10.2); Carbon Dioxide 25 mmol/L (22-30); Chloride 105 mmol/L (98-107); Estimated Creatinine Clearance 60 ml/min; Glucose 101 mg/dl (70-99); Potassium 3.9 mmol/L (3.5-5.1); eGFR > 60.00
[2024-05-03 05:10] LABS: Sodium 136 mmol/L (135-145)
[2024-05-03] MEDS: SYNTHROID 88 MCG PO (05:50)
[2024-05-03 06:00] VITALS: BMI 21.9
[2024-05-03 07:39] LABS: Glucose - Point of Care 161 mg/dl (70-99)
[2024-05-03 08:04] VITALS: BP 192/90
[2024-05-03] MEDS: ENTEREG 12 MG PO (08:07)
[2024-05-03] MEDS: PROTONIX 40 MG PO (08:07)
[2024-05-03] MEDS: COZAAR 50 MG PO (08:07)
[2024-05-03] MEDS: TORADOL 10 MG IV (08:08)
[2024-05-03] MEDS: ERYTHROMYCIN 0.5% OPHTHALMIC OINTMENT 1 APPLIC OPHTH ×2 (08:09→11:55)
[2024-05-03] MEDS: NOVOLOG FLEXPEN-MODERATE RESISTANCE SC (08:10)
[2024-05-03] MEDS: LANTUS 0.1 UNITS SC (08:22)
--- NOTE | 2024-05-03 08:24 | SUR.OPER ---
0700 assumed care. pt OOB chair. Denies pain . aAO x3;
SR 91 BP via left upper arm 192/90 MAp 118 POX 95% RA. Murmur to auscultation (chronic ) pedal pulses +
lungs clear thought no cough no SOB
Abdomen soft non tender. Normal Bs through. last bowel movement at night few times Rt J-P no output
Voiding without difficulties
Peripher lines : left Fa and Rt hand capped flushed
Blood sugar 161 Lantus 10 units adm;
--- NOTE | 2024-05-03 08:41 | W.PN.HOSP.TC ---
Today's Communication/Plan
-
when patient is discharged would prescribe Erythromycin ointment with instructions to take total 3-5 days (I added this to meds)
resume home DM medications at [place] without changes
Assessment / Plan
Assessment / Plan
Ms. Theresa Allison is a 73 yo woman with hx DM 2, essential HTN, HLD, hypothyroidism, severe , rectal cancer now status post robotic low anterior resection 05/02 with cysto and stents placed prior to procedure; medicine asked to consult for medical
care post-op.
Rectal Cancer s/p Robotic low anterior Resection 05/01
-s/p surgery by Dr. Covington
-monitored in ICU overnight given critical , now tele status
-diet advanced to fulls
-IVF off
s/p cysto and bilateral ureteral stent insertion
-spasms overnight, evaluated by Urology morning of 05/02 - with repositioning significant urine output, not bloody
-leavitt out
Left Eye irritation, concern for corneal abrasion
-Erythrmycin ointment started - continue x 3 more days
Hyponatremia
-check urine studies
Severe
TTE 02/11/24 - EF 65-70%, peak and mean gradients aortic valve 86 and 54mmHg respectively. peak velocity 4.4m/s
-monitored in ICU overnight
-appreciate cardiology consult
Essential HTN
-PEDIATRIC CLINICAL NURSE SPECIALIST Losartan
Hypothyroidism
-PEDIATRIC CLINICAL NURSE SPECIALIST Synthroid
DM
-patient is on Janumet XR and Repaglinide at home
-A1c = 7.1%
-ISS low
-started Lantus here
DVT PPx
FULL CODE
Anticipated Discharge: Within 24 hours
Subjective/Interval History
-
Date of Service: May 03, 2024
eye is improving
Objective Data
-
Labs:
Laboratory Results
05/03/24
04:04
WBC 8.2
Hgb 10.6 L
Hct 31.6 L
Plt Count 207
Sodium 136
Potassium 3.9
Chloride 105
Carbon Dioxide 25
BUN 6 L
Creatinine 0.8
Glucose 101 H
Calcium 8.6
Vital Signs:
Vital Signs
Temp Pulse Resp BP Pulse Ox
98.1 F 91 14 192/90 98
05/03/24 07:37 05/03/24 08:07 05/02/24 14:00 05/03/24 08:07 05/03/24 05:55
I&O
05/02/24 05/03/24 05/04/24
06:59 06:59 06:59
Intake Total 1435 / 1515 480 / 480
Output Total 3035 / 3035 1360 / 1360
Balance -1600 / -1520 -880 / -880
Review of Systems
-
History Source: Patient
All other systems: Reviewed and negative
Physical Exam
-
General: No Apparent Distress
HEENT: Moist Mucous Membranes and Other (eye with less erythema, no eye lid swelling)
Respiratory: Clear to Auscultation
Cardiac: Regular Rhythm and S1/S2
Skin: Warm and Dry; Negative Rash
Neuro: AO x 3 and Other
Psych: Calm
Data Reviewed
-
Diagnostic Radiology: Report Reviewed by me
Labs: Labs Reviewed by me
--- NOTE | 2024-05-03 11:34 | W.PN.CRS1 ---
Today's Communication / Plan
-
possible d/c home later today
Assessment/Plan
-
POD #2
1. tolerating full liquids. Start on low residue with Ensure.
2. labs and vitals ok.
3. OOB.
4. start Lovenox.
5. Voiding post leavitt removal
6. appreciate hospitalist/cardiology help.
7. If tolerates low residue diet, okay for discharge. DELL drain removed at bedside. All discharge instructions discussed with patient including activity levels, follow up, and medications. All questions answered.
Subjective Data
Procedure
1) robotic low anterior resection 2) flexible sigmoidoscopy on 05/01/24
Subjective Data
Date of Service: May 03, 2024
Patient states she feels well. She is having bowel movements and urinating. Her pain is controlled. She has no complaints.
Objective Data
-
Vital Signs
Temp Pulse Resp BP Pulse Ox
97.6 F 75 14 192/90 98
05/03/24 11:13 05/03/24 10:15 05/02/24 14:00 05/03/24 08:07 05/03/24 08:15
Intake & Output
05/02/24 05/03/24 05/04/24
06:59 06:59 06:59
Intake Total 1435 / 1515 480 / 480
Output Total 3035 / 3035 1360 / 1360
Balance -1600 / -1520 -880 / -880
Intake:
IV fluids (Total) 1435 / 1515 480 / 480
normosol 1435 / 1515 480 / 480
Output:
Liquid stool amount 150 / 150
Rectum 150 / 150
Drain Output (Total) 75 / 75 10 10
Right Middle Abdomen Alvin- 75 / 75 10
Rocha A
Urine, Leavitt 2810 / 2810 1350 / 1350
Other:
Number of approximated MODERATE 2
amounts of urine
Lab Results
05/03/24 04:04
05/03/24 04:04
Physical Exam
-
General: No Acute Distress and AOx3
Abdomen: Soft, Non Distended and Non Tender
Skin: Warm and Dry
Incision: Clear, Dry, Intact
[2024-05-03] MEDS: NOVOLOG FLEXPEN-MODERATE RESISTANCE 1 UNITS SC (11:54)
[2024-05-03 12:01] LABS: Glucose - Point of Care 165 mg/dl (70-99)
--- NOTE | 2024-05-03 12:16 | W.DS.TRANS ---
DC Summary - [employer] Supervisor
-
Discharge Instructions:
Sleep Apnea Risk Low
Discharge Diagnosis/Procedures Robotic low anterior resection
Diet Low Fiber
Activity No strenuous activity
Additional Activity No lifting over 10lbs (gallon of milk)
Driving Restrictions No driving for 1 week
Bathing Restrictions OK to Shower
Wound Care Allow glue to naturally fall off. Do not pick at
incisions. Cover former drain site with gauze
and paper tape. Okay to leave open when
showering. Okay to leave open to air once it
seals in a few days.
Instructions: Low-fiber diet
Stand-Alone Forms:
Changes to Home Medications: Yes
Discharge Medications:
DC Medications w/original date entered in [employer]
repaglinide 1 mg tablet 1 mg PO MEALS Diabetes 08/04/19
rosuvastatin 10 mg tablet 10 mg PO MOTUWETHFR@1800 High cholesterol 02/28/21
folic acid 1 mg tablet 1 mg PO DAILY Supplement 08/23/22
levothyroxine 75 mcg tablet 88 mcg PO DAILY Thyroid 08/23/22
sitagliptin phos 50 mg-metformin ER 1,000 mg tablet,extend rel 24h mp (Janumet XR) 1 tab PO BID@08,17 Diabetes 08/23/22
cholecalciferol (vitamin D3) 50 mcg (2,000 unit) tablet (Vitamin D3) 50 mcg PO DAILY Supplement 04/23/24
cyanocobalamin (vitamin B-12) 1,000 mcg tablet (Vitamin B-12) 1,000 mcg PO DAILY Supplement 04/23/24
losartan 50 mg tablet 50 mg PO DAILY Blood Pressure 04/23/24
erythromycin 5 mg/gram (0.5 %) eye ointment 0.5 inch ophthalmic (eye) QID #3.5 grams 05/03/24
Home Medication Changes
erythromycin 5 mg/gram (0.5 %) eye ointment 0.5 inch ophthalmic (eye) QID #3.5 grams 05/03/24
Pending Results: Yes
Additional Pending Results:
Or pathology
--- NOTE | 2024-05-03 13:30 | PTCARENOTE ---
discharge instructions given to patient, patient verbalized understanding to instructions and education.
[2024-05-03 13:33] VITALS: BP 135/74
--- NOTE | 2024-05-03 14:09 | CM ---
CM following re: discharge planning.
Reviewed pt's chart, met with pt and pt's daughter at bedside.
Discharge order noted. pt is aware, expressed her agreement with discharge. IMM reviewed, placed on chart, pt has a copy.
Pt reports she is independent with functional ability, has supportive family. No after care VN services indicated.
D/C plan: home no needs. Family to transport.
[2024-05-03 15:13] VITALS: BP 167/84
--- NOTE | 2024-05-03 15:22 | PTCARENOTE ---
Patient discharge to home. Peripheral lines RT and left removed. Discharge instructions given to patient and she confirmed of understanding of all discharge instructions. Transportation to home provided by pt's family
== END 2024-05-03 15:34 | disposition home or self-care (01) | DRG 330 ==
LOC: ICU 06:09
PROVIDERS: ADMITTING PHYSICIAN Surgery; CONSULT PHYSICIAN Internal Medicine; CONSULT PHYSICIAN Student in an Organized Health Care Education/Training Program; FAMILY PHYSICIAN Family Medicine
PROC: 0DBN4ZZ Excision of Sigmoid Colon, Percutaneous Endoscopic Approach (ICD-10-PCS; 2024-05-01)
PROC: 0DJD8ZZ Inspection of Lower Intestinal Tract, Via Natural or Artificial Opening Endoscopic (ICD-10-PCS; 2024-05-01)
PROC: 0DBP4ZZ Excision of Rectum, Percutaneous Endoscopic Approach (ICD-10-PCS; 2024-05-01)
PROC: 8E0W4CZ Robotic Assisted Procedure of Trunk Region, Percutaneous Endoscopic Approach (ICD-10-PCS; 2024-05-01)
DX: C20 Malignant neoplasm of rectum (principal); E87.1 Hypo-osmolality and hyponatremia; D72.829 Elevated white blood cell count, unspecified; E03.9 Hypothyroidism, unspecified; E11.65 Type 2 diabetes mellitus with hyperglycemia; I35.0 Nonrheumatic aortic (valve) stenosis; I10 Essential (primary) hypertension; E78.00 Pure hypercholesterolemia, unspecified; I65.23 Occlusion and stenosis of bilateral carotid arteries; E21.3 Hyperparathyroidism, unspecified; Z79.84 Long term (current) use of oral hypoglycemic drugs; Z79.890 Hormone replacement therapy; Z87.891 Personal history of nicotine dependence; Z88.6 Allergy status to analgesic agent; Z79.899 Other long term (current) drug therapy
CPT/HCPCS: 88304; 88309; 36415; 71045; 80048; 80053; 82962; 83036; 83735; 83935; 84300; 85025; 85027; 85610; 85730; 86850; 86900; 86901; 93005; J1335

== ENCOUNTER → 2024-08-12 09:17 | Outpatient (REF) | payer MEDICARE, OTHER, SELFPAY | LOC: HWRCS 09:17 | PROVIDERS: ATTENDING PHYSICIAN Internal Medicine Cardiovascular Disease; FAMILY PHYSICIAN Family Medicine | DX: I35.0 Nonrheumatic aortic (valve) stenosis (principal) | CPT/HCPCS: 93306 ==

== ENCOUNTER → 2024-09-15 10:36 | Outpatient (REF) | payer MEDICARE, OTHER, SELFPAY ==
[2024-09-15 12:36] LABS: CEA 1.87 ng/ml
== END ==
LOC: REG 10:36
PROVIDERS: ATTENDING PHYSICIAN Surgery; FAMILY PHYSICIAN Family Medicine
DX: Z85.048 Personal history of other malignant neoplasm of rectum, rectosigmoid junction, and anus (principal)
CPT/HCPCS: 36415; 82378

== ENCOUNTER 2024-11-18 06:16 | Day surgery (SDC) | payer MEDICARE, OTHER, SELFPAY ==
[2024-11-18 07:01] VITALS: BMI 21.5
[2024-11-18 07:03] VITALS: BP 172/83
[2024-11-18 07:16] LABS: Glucose - Point of Care 162 mg/dl (70-99)
[2024-11-18 09:38] VITALS: BP 143/114
[2024-11-18 09:45] VITALS: BP 163/59
[2024-11-18 10:00] VITALS: BP 203/74
[2024-11-18 10:03] VITALS: BP 189/60
== END 2024-11-18 10:15 | disposition home or self-care (01) ==
LOC: SDS 06:16
PROVIDERS: ATTENDING PHYSICIAN Internal Medicine Gastroenterology
DX: D12.0 Benign neoplasm of cecum (principal); K64.0 First degree hemorrhoids; Z98.0 Intestinal bypass and anastomosis status
CPT/HCPCS: 45390; 82962; 88305

== ENCOUNTER → 2025-01-11 12:36 | Outpatient (REF) | payer MEDICARE, OTHER, SELFPAY | LOC: DHVS 12:36 | PROVIDERS: ATTENDING PHYSICIAN Surgery Vascular Surgery; FAMILY PHYSICIAN Family Medicine | DX: I65.23 Occlusion and stenosis of bilateral carotid arteries (principal) | CPT/HCPCS: 93880 ==

== ENCOUNTER → 2025-01-18 11:45 | Outpatient (REF) | payer MEDICARE, OTHER, SELFPAY ==
[2025-01-18 19:41] LABS: CEA 2.48 ng/ml
== END ==
LOC: REG 11:45
PROVIDERS: ATTENDING PHYSICIAN Surgery; FAMILY PHYSICIAN Family Medicine
DX: Z85.048 Personal history of other malignant neoplasm of rectum, rectosigmoid junction, and anus (principal)
CPT/HCPCS: 36415; 82378

== ENCOUNTER → 2025-02-08 11:03 | Outpatient (REF) | payer MEDICARE, OTHER, SELFPAY | LOC: HWRCS 11:03 | PROVIDERS: ATTENDING PHYSICIAN Internal Medicine Cardiovascular Disease; FAMILY PHYSICIAN Family Medicine | DX: I35.0 Nonrheumatic aortic (valve) stenosis (principal) | CPT/HCPCS: 93306 ==